=== PATIENT | male | born 1985 | race American Indian/Alaskan Native ===

== ENCOUNTER 2020-09-13 06:09 | Emergency (ER) | payer OTHER ==
[2020-09-13] MEDS ORDERED: LIDOCAINE (2%) 20 MG/1 ML VIAL 20 ML MDV INFILTRATI ONE (07:41)
--- NOTE | 2020-09-13 07:41 | Emergency Department Report ---
ED General Adult HPI - General Chief complaint: Rectal Pain Stated complaint: RECTAL PAIN Time Seen by Provider: 09/13/20 07:23 Source: patient Mode of arrival: Ambulatory Limitations: No Limitations - History of Present Illness Initial comments: There is a 34-year-old male who presents to the emergency department with a chief complaint of rectal pain. Patient reports he thought he had a hemorrhoid and took medicated witch mk pads applied along with hemorrhoid ointment but is not having any relief. He states this has been ongoing for the last week and a half. He reports a history of HIV which he takes Biktarvy and is compliant with his regimen. He reports his viral load is undetectable. He denies any recent unprotected rectal partners. He reports the pain is aggravated when he has a bowel movement but he denies any abdominal pain, fever, chills, night sweats, headache, dizziness, blurred vision, nausea, running, diarrhea, chest pain, shortness of breath, weakness or any other associated symptoms. - Related Data Previous Rx's Medication Instructions Recorded Last Taken Type Sulfamethoxazole/Trimethoprim 1 each PO BID #20 tablet 02/20/15 Unknown Rx [Bactrim DS TAB] traMADoL [Ultram 50 MG tab] 50 mg PO Q6HR PRN #20 tablet 02/20/15 Unknown Rx Acetaminophen with Codeine 1 tab PO Q6HR #12 tab 09/13/20 Unknown Rx [Acetaminophen-Codeine #4 TAB] Clindamycin [Clindamycin CAP] 300 mg PO Q8H #30 cap 09/13/20 Unknown Rx Allergies Allergy/AdvReac Type Severity Reaction Status Date / Time No Known Allergies Allergy Verified 09/26/14 19:56 ED Review of Systems ROS: Stated complaint: RECTAL PAIN Other details as noted in HPI Comment: All other systems reviewed and negative Constitutional: denies: chills, fever Eyes: denies: eye pain, eye discharge, vision change ENT: denies: ear pain, throat pain Respiratory: denies: cough, shortness of breath, wheezing Cardiovascular: denies: chest pain, palpitations Endocrine: no symptoms reported Gastrointestinal: as per HPI. denies: abdominal pain, nausea, diarrhea Genitourinary: denies: urgency, dysuria Musculoskeletal: denies: back pain, joint swelling, arthralgia Skin: denies: rash, lesions Neurological: denies: headache, weakness, paresthesias Psychiatric: denies: anxiety, depression Hematological/Lymphatic: denies: easy bleeding, easy bruising ED Past Medical Hx - Past Medical History Previous Medical History?: Yes Hx HIV: Yes - Surgical History Past Surgical History?: No - Family History Family history: no significant - Social History Smoking Status: Never Smoker Substance Use Type: Marijuana - Medications Home Medications: Home Medications Medication Instructions Recorded Confirmed Last Taken Type Sulfamethoxazole/Trimethoprim 1 each PO BID #20 tablet 02/20/15 Unknown Rx [Bactrim DS TAB] traMADoL [Ultram 50 MG tab] 50 mg PO Q6HR PRN #20 tablet 02/20/15 Unknown Rx Acetaminophen with Codeine 1 tab PO Q6HR #12 tab 09/13/20 Unknown Rx [Acetaminophen-Codeine #4 TAB] Clindamycin [Clindamycin CAP] 300 mg PO Q8H #30 cap 09/13/20 Unknown Rx ED Physical Exam - General Limitations: No Limitations General appearance: alert, in no apparent distress - Head Head exam: Present: atraumatic, normocephalic - Eye Eye exam: Present: normal appearance, PERRL, EOMI Pupils: Present: normal accommodation - ENT ENT exam: Present: normal exam, normal orophraynx, mucous membranes moist - Neck Neck exam: Present: normal inspection, full ROM. Absent: tenderness, meningismus - Respiratory Respiratory exam: Present: normal lung sounds bilaterally. Absent: respiratory distress, wheezes, rales, rhonchi, stridor, chest wall tenderness - Cardiovascular Cardiovascular Exam: Present: regular rate, normal rhythm, normal heart sounds. Absent: systolic murmur, diastolic murmur, rubs, gallop - GI/Abdominal GI/Abdominal exam: Present: soft, normal bowel sounds. Absent: distended, tenderness, guarding, rebound, rigid - Rectal Rectal exam: Present: other (thre is a 3cm area of induration and fluctuance lateral to the rectum at 4 oclock. this does not appear to coommunicate wiht the rectum. no hemorrhoids. ) - Extremities Exam Extremities exam: Present: normal inspection, full ROM, normal capillary refill - Back Exam Back exam: Present: normal inspection, full ROM. Absent: tenderness, CVA tenderness (R), CVA tenderness (L) - Neurological Exam Neurological exam: Present: alert, oriented X3, normal gait - Psychiatric Psychiatric exam: Present: normal affect, normal mood - Skin Skin exam: Present: warm, dry, intact, normal color. Absent: rash ED Course Vital Signs 09/13/20 06:42 Temperature 98.3 F Pulse Rate 78 Respiratory 18 Rate Blood Pressure 114/79 O2 Sat by Pulse 98 Oximetry - Reevaluation(s) Reevaluation #1: 09/13/20 07:40 Patient nontoxic in no acute distress. His vital signs are stable and he had no systemic symptoms of infection. Abdominal exam was benign. On exam he has a perirectal abscess. This appears to be far away from the rectum at least 6 or 7 cm and I do think it is safe to do an incision and drainage emergency department without any injury to the rectum itself. I will recommend that the patient follow-up with general surgery, do sitz bath's and start him on antibiotics. At this time I do not think CT imaging or labs are necessary due to the obvious presentation and the lack of abdominal pain or systemic symptoms. - I & D Right Buttocks Type of Procedure: Complex Site: Right perirectal Blade Size: 11 I & D Procedure: betadine prep, sterile drapes applied, sterile dressing applied, gauze wick placed Progress: Patient gave verbal consent. The area was first cleaned with Betadine and then anesthetized with 2% lidocaine without epinephrine. A 1 cm incision was made over the area of most fluctuance and a copious amount of purulent drainage was expressed approximately 50 mL. The area was then probed and deloculated and copiously irrigated with saline. Quarter inch iodoform packing was then placed in the wound approximately 6 cm worth. Patient tolerated this well. Sterile dressing was applied. Less than 5 mL blood loss. ED Medical Decision Making - Medical Decision Making Patient's abscess was drained without complication. He felt much better prior to discharge. Recommended sitz bath's 5 minutes every hour. Clindamycin and Tylenol 3 for pain were given to the patient. Recommended follow-up with surgery as needed and return to the emergency department any changing worsening symptoms. He verbalized understanding of the diagnosis, treatment plan and follow-up instructions and all of his questions were answered. - Differential Diagnosis abscess, hemorrhoid, fistula Critical care attestation.: If time is entered above; I have spent that time in minutes in the direct care of this critically ill patient, excluding procedure time. ED Disposition Clinical Impression: Perirectal abscess Disposition: DC-01 TO HOME OR SELFCARE Is pt being admited?: No Condition: Stable Instructions: Anorectal Abscess Prescriptions: Acetaminophen with Codeine [Acetaminophen-Codeine #4 TAB] 1 tab PO Q6HR #12 tab Clindamycin [Clindamycin CAP] 300 mg PO Q8H #30 cap Referrals: GRAEME MONTESINOS MD [Staff Physician] - 3-5 Days BRIAN US MD [Staff Physician] - 3-5 Days Forms: Work/School Release Form(ED) Time of Disposition: 08:05
[2020-09-13 08:27] VITALS: BP 115/68
== END 2020-09-13 08:15 | disposition home or self-care (01) ==
LOC: ED 06:09
DX: K61.1 Rectal abscess (principal); F12.90 Cannabis use, unspecified, uncomplicated; Z79.899 Other long term (current) drug therapy; Z21 Asymptomatic human immunodeficiency virus [HIV] infection status

== ENCOUNTER 2021-08-26 11:16 | Emergency (ER) | payer SELFPAY ==
[2021-08-26 11:30] VITALS: BP 129/73
--- NOTE | 2021-08-26 11:47 | Emergency Department Report ---
Abscess Boil HPI - HPI Chief Complaint: Skin/Abscess/Foreign Body Stated Complaint: BACESS ON LEFT BUTTOCK Duration: >1 Week Location: Other (p) Severity: Mild History: Yes Pain, No Fever, No Purulent Drainage, No Numbness, No Foreign Body, No Previous History, No Insect Bite HPI: 35 female present to ed complain of buttock pain x1 week. Patient had prior I&D to the area. Patient states that he gets abscesses often. Patient states that pain 5/10. Patient denies any fever chills or drainage from area. He states using warm compress for relief. He is alert and oriented x3. No acute distress noted. no ill appearance noted Home Medications: Previous Rx's Medication Instructions Recorded Last Taken Type Sulfamethoxazole/Trimethoprim 1 each PO BID #20 tablet 02/20/15 Unknown Rx [Bactrim DS TAB] traMADoL [Ultram 50 MG tab] 50 mg PO Q6HR PRN #20 tablet 02/20/15 Unknown Rx Acetaminophen with Codeine 1 tab PO Q6HR #12 tab 09/13/20 Unknown Rx [Acetaminophen-Codeine #4 TAB] Clindamycin [Clindamycin CAP] 300 mg PO Q8H #30 cap 09/13/20 Unknown Rx Ibuprofen [Motrin] 800 mg PO Q8HR PRN 10 Days #20 08/26/21 Unknown Rx tablet Sulfamethoxazole/Trimethoprim 1 each PO BID 10 Days #20 tab 08/26/21 Unknown Rx [Bactrim DS TAB] cephALEXin [Keflex] 500 mg PO Q12HR 10 Days #20 cap 08/26/21 Unknown Rx Allergies/Adverse Reactions: Allergies Allergy/AdvReac Type Severity Reaction Status Date / Time No Known Allergies Allergy Verified 09/26/14 19:56 ED Review of Systems ROS: Stated complaint: BACESS ON LEFT BUTTOCK Other details as noted in HPI ED Past Medical Hx - Past Medical History Hx HIV: Yes - Social History Smoking Status: Current Every Day Smoker Substance Use Type: None - Medications Home Medications: Home Medications Medication Instructions Recorded Confirmed Last Taken Type Sulfamethoxazole/Trimethoprim 1 each PO BID #20 tablet 02/20/15 Unknown Rx [Bactrim DS TAB] traMADoL [Ultram 50 MG tab] 50 mg PO Q6HR PRN #20 tablet 02/20/15 Unknown Rx Acetaminophen with Codeine 1 tab PO Q6HR #12 tab 09/13/20 Unknown Rx [Acetaminophen-Codeine #4 TAB] Clindamycin [Clindamycin CAP] 300 mg PO Q8H #30 cap 09/13/20 Unknown Rx Ibuprofen [Motrin] 800 mg PO Q8HR PRN 10 Days #20 08/26/21 Unknown Rx tablet Sulfamethoxazole/Trimethoprim 1 each PO BID 10 Days #20 tab 08/26/21 Unknown Rx [Bactrim DS TAB] cephALEXin [Keflex] 500 mg PO Q12HR 10 Days #20 cap 08/26/21 Unknown Rx ED Abscess Boil Physical Exam - Exam General: Vital signs noted. No distress. Alert and acting appropriately. ED Course Vital Signs 08/26/21 11:27 Temperature 98.9 F Pulse Rate 69 Respiratory 14 Rate Blood Pressure 129/73 [Right] O2 Sat by Pulse 98 Oximetry Critical care attestation.: If time is entered above; I have spent that time in minutes in the direct care of this critically ill patient, excluding procedure time. ED Medical Decision Making - Medical Decision Making 35 female present to ed complain of buttock pain x1 week. Patient had prior I&D to the area. Patient states that he gets abscesses often. Patient states that pain 5/10. Patient denies any fever chills or drainage from area. He states using warm compress for relief. He is alert and oriented x3. No acute distress noted. no ill appearance noted . Physical examination patient has tender hard nodule with no fluctuance noted to the right buttock area. Rechecked the patient is resting quietly quietly and comfortable and feeling better. I discussed the results of diagnostic study, my clinical impression and the plan for further treatment with the patient. Patient agrees with plan and discharge at this present time. All question addressed. I have given the patient instruction regarding a diagnosis ,expectation ,follow- up and return precaution. I explained to the patient that emergent condition may arise and to return to the ED for new worsen and any new persisting condition. I have explained the importance of following up with the primary care physician or referral physician listed below has instructed. The patient verbalized understanding of discharge instruction. ED Disposition Clinical Impression: Abscess Disposition: 01 HOME / SELF CARE / HOMELESS Is pt being admited?: No Does the pt Need Aspirin: No Condition: Stable Instructions: Skin Abscess, [id number] Additional Instructions: take medication as prescribe return to ed for worsen symptoms Prescriptions: Sulfamethoxazole/Trimethoprim [Bactrim DS TAB] 1 each PO BID 10 Days #20 tab cephALEXin [Keflex] 500 mg PO Q12HR 10 Days #20 cap Ibuprofen [Motrin] 800 mg PO Q8HR PRN 10 Days #20 tablet PRN Reason: Pain, Mild (1-3) Referrals: JOSE HOLLOWAY MD [Primary Care Provider] - 3-5 Days Forms: Work/School Release Form(ED) Time of Disposition: 11:47
== END 2021-08-26 12:00 | disposition home or self-care (01) ==
LOC: ED 11:16
DX: L02.31 Cutaneous abscess of buttock (principal); F17.200 Nicotine dependence, unspecified, uncomplicated
CPT/HCPCS: 99282